=== PATIENT | female | born 1955 | race Caucasian/White ===

== ENCOUNTER 2016-04-25 13:04 | Emergency (ER) | payer OTHER ==
[2016-04-25 13:14] VITALS: TEMP 98.7; BMI 27.8
[2016-04-25] MEDS ORDERED: HYDROmorphone 1 MG INJECTION IV ONE (13:49)
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
[2016-04-25 16:02] VITALS: BP 127/68; PULSE 76
== END 2016-04-25 16:10 | disposition home or self-care (01) ==
LOC: ED 13:04
DX: S52.502A Unspecified fracture of the lower end of left radius, initial encounter for closed fracture (principal); S52.612A Displaced fracture of left ulna styloid process, initial encounter for closed fracture; V49.40XA Driver injured in collision with unspecified motor vehicles in traffic accident, initial encounter; E03.9 Hypothyroidism, unspecified; Z79.899 Other long term (current) drug therapy; M25.551 Pain in right hip; R07.81 Pleurodynia
CPT/HCPCS: 29125; 71111; 73080; 73110; 73502; 96374; 99283; J1170